=== PATIENT | male | born 2000 | race Caucasian/White ===

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

== ENCOUNTER 2024-05-31 13:48 | Emergency (ER) | payer SELFPAY ==
[2024-05-31 13:50] VITALS: BP 139/76; PULSE 75; RESP 18; TEMP 36.1; O2SAT 100; BMI 21.0
--- NOTE | 2024-05-31 14:26 | EX.ED.VIS.PS ---
HPI HPI - Psych History of Present Illness Chief Complaint: Suicidal Detail of Chief Complaint: Depression with suicidal ideation. Informant: patient and mental health staff Onset/Context/Timing Onset: Weeks Context: Gradual Onset Timing: Continuous Current Severity: Moderate Maximum Severity: Moderate Relieved by: Plan to shoot himself. Patient has access to a gun. Associated Symptoms Associated Symptoms - Psych: Positive for Depressed and Suicidal Thoughts Specific plan (suicidal thought): Plan to shoot himself. Patient has access to a gun. Narrative Narrative: 23-year-old biologic male who identifies as a female. Patient has a history of anxiety and depression. The last 2 weeks has been more more depressed. Patient is currently starting the process of transitioning from a biological male to female. Recently moved from the [facility] to [place]. Has a plan to shoot himself. Had a similar episode in fourth grade but no one was aware of that and was not admitted to a psychiatric facility at that time. Has had prior psychiatric admissions within the last 2 years. Denies any recent illness. Denies drug use. Prior similar symptoms: Yes Recent Illness/Hospitalization: No PFSH [facility] Home Medications ?Medication ?Instructions ?Recorded ?Last Taken ?Type buspirone 15 mg tablet 15 mg PO TID 05/31/24 Unknown History cariprazine 3 mg capsule (Vraylar) 3 mg PO DAILY 05/31/24 Unknown History duloxetine 20 mg capsule,delayed 80 mg PO DAILY 05/31/24 Unknown History release (Cymbalta) estradiol 2 mg tablet 2 mg PO TID 05/31/24 Unknown History prazosin 1 mg capsule 3 mg PO DAILY 05/31/24 Unknown History progesterone 50 mg/mL 100 mg IM DAILY 05/31/24 Unknown History intramuscular oil spironolactone 50 mg tablet 50 mg PO DAILY 05/31/24 Unknown History (Aldactone) Allergy/AdvReac Type Severity Reaction Status Date / Time Penicillins (PCN) Allergy Unknown Other Verified 05/31/24 13:53 Social History Smoking Status: Current every day smoker tobacco type: e-cigarettes ROS ROS ED ROS Narrative Denies recent illness. Constitutional Constitutional ED: Denies fever(s) Eyes Eyes: Denies blurry vision ENT ENT ED: Denies ear pain Cardiovascular Cardiovascular: Denies chest pain Respiratory/Chest Respiratory/Chest: Denies cough Genitourinary Genitourinary ED: Denies dysuria Musculoskeletal Musculoskeletal: Denies arthralgias Integumentary Denies abscess Neurologic Neurologic: Denies headache(s) Psychiatric Psychiatric: Reports anxiety, depression, suicidal ideation and suicidal thoughts Endocrine Endocrinology: Denies polydipsia Hematologic/Lymphatic Hematologic/Lymphatic: Denies easy bleeding Allergic/Immunologic Allergic/Immunologic ED: Denies mouth swelling EXAM Physical Exam Narrative Exam Narrative: Well-appearing 23-year-old biologic male. Vital signs stable afebrile. Pulse ox on percent on room air no hypoxia. No distress. Sitting upright in bed. Makes eye contact. Currently is cooperative. Currently not violent or verbally abusive. Myself and the counseling center personnel in the room. H EENT exam unremarkable. Neck nontender no JVD. No lymphadenopathy. No signs of trauma. Lungs clear to auscultation. Heart regular rhythm rate about 75 no murmur. Chest wall ribs nontender. Abdomen soft nontender. Moving all 4 extremities. Calves are nontender without edema. No lacerations to the upper extremities. Back nontender. Patient's awake and alert. Acting appropriately. Answering questions following commands. No smell of alcohol. No signs of a toxidrome. Const Vital Signs: 05/31/24 13:50 05/31/24 14:49 05/31/24 21:46 Temperature 97 F L 97.8 F Temperature Source Oral Pulse Rate 75 84 74 Respiratory Rate 18 16 16 Blood Pressure 139/76 H 126/98 H 114/75 Blood Pressure Mean 97 107 88 Pulse Ox 100 99 98 Oxygen Delivery Method Room Air Positive well nourished and well developed; Negative for obese, cachectic, contractures or unkempt General Appearance ED: well developed and NAD; Negative for unkempt, cachectic, contractures or pallor Nutritional Appearance: Negative for cachectic or obese HEENT Reports moist mucous membranes normocephalic and atraumatic; Negative for trauma or tenderness Eyes PERRL and EOMs intact bilaterally General Eye ED: Negative for pale conjunctiva Neck no lymphadenopathy, supple and no JVD General: Negative for tenderness Resp normal respiratory effort and clear to auscultation bilaterally Effort and Inspection: Negative for retractions Auscultation: rales; Negative for rhonchi, wheezes, diminished lung sounds or other Cardio S1 normal heart sound, S2 normal heart sound and no murmurs Rate: regular rate Rhythm: regular rhythm GI non-tender, non-distended and no masses Inspection: Negative for abdominal distention Auscultation: normoactive bowel sounds Palpation: soft; Negative for tender or guarding Back/Spine no CVA tenderness General Back: Negative for CVA tenderness Cervical Spine: Negative for cervical spine tenderness Thoracic Spine / Upper Back: Negative for thoracic spinal tenderness Lumbar Spine / Lower Back: Negative for lumbar spinal tenderness Extremity normal to inspection General Extremety ED: Negative for edema or tenderness General Extremity: Negative for edema Neuro oriented x3 and CN's II-XII intact bilaterally Sensorium / Orientation: alert, oriented to person, oriented to place and oriented to time; Negative for confused, lethargic or stuporous Motor Exam: strength 5/5 throughout Psych cooperative, speech normal, activity/motor behavior normal and denies hallucinations; Negative for denies suicidal ideation Appearance: grossly normal; Negative for unkempt Attitude: calm and engaged Activity / Motor Behavior: appropriate eye contact Speech: normal speech Mood & Affect: depressed Thought Process: normal thought process Thought Content: suicidality Attention / Concentration: attention grossly intact Memory / Cognition: memory grossly intact Insight: insight good Judgement: judgement good Skin General Skin Exam: Negative for jaundice or pallor Lesions: no lesions Rashes: no rashes Trauma: Negative for abrasion Wounds: Negative for amputation MDM MDM MDM Narrative Medical decision making narrative: 23-year-old patient with anxiety depression with suicidal ideation and plan. ED mental health evaluation. Crisis is evaluating patient. Patient will be pink slipped to a psychiatric facility. Repeat exam patient is resting comfortably at 4:21 PM. Awaiting crisis placement for depression and suicidal ideation. History & Record Review Discussion w/independent historian: Patient Lab Data Attestation: I reviewed the patient's lab results. Lab results narrative: CBC normal. White count of 6. H&H 14 and 42. Platelets 224. Electrolytes show gap 5. Normal BUN and creatinine. Glucose 91. Tox screen only positive for cannabis. Alcohol negative. Labs: Laboratory Results - last 24 hr 05/31/24 15:00 WBC 6.7 RBC 4.72 Hgb 14.2 Hct 42.8 MCV 90.7 MCH 30.1 MCHC 33.2 RDW Std Deviation 38.6 RDW Coeff of Fabi 11.5 L Plt Count 224 MPV 11.0 Immature Gran % (Auto) 0.100 Neut % (Auto) 71.8 H Lymph % (Auto) 22.1 [place] % (Auto) 5.1 Eos % (Auto) 0.3 Baso % (Auto) 0.6 Absolute Neuts (auto) 4.8 Absolute Lymphs (auto) 1.48 Nucleated RBC % 0 Sodium 140 Potassium 3.7 Chloride 108 H Carbon Dioxide 27.0 Anion Gap 5 BUN 7 Creatinine 0.85 Estim Creat Clear Calc 134.94 Est GFR (MDRD) Af Amer 145 Est GFR (MDRD) Non-Af 120 BUN/Creatinine Ratio 8.2 L Glucose 91 Calcium 9.0 Urine Opiates Screen NEGATIVE Urine Methadone Screen NEGATIVE Ur Barbiturates Screen NEGATIVE Ur Phencyclidine Scrn NEGATIVE Ur Amphetamines Screen NEGATIVE MDMA (Ecstasy) Screen NEGATIVE U Benzodiazepines Scrn NEGATIVE Urine Cocaine Screen NEGATIVE U Cannabinoids Screen POSITIVE H Ur Drug Screen Comment Ethyl Alcohol < 3.0 Discharge Plan Triage Chief Complaint: Suicidal ED Provider: Sandor Leiva Dx/Rx/DC Orders Clinical Impression: Depression, Depression with suicidal ideation Prescriptions: No Action duloxetine [Cymbalta] 20 mg capsule,delayed release(DR/EC) 80 mg PO DAILY buspirone 15 mg tablet 15 mg PO TID estradiol 2 mg tablet 2 mg PO TID spironolactone [Aldactone] 50 mg tablet 50 mg PO DAILY Vraylar 3 mg capsule 3 mg PO DAILY prazosin 1 mg capsule 3 mg PO DAILY progesterone 50 mg/mL oil 100 mg IM DAILY Primary Care Provider: Care Physician,No Primary Referrals: Care Physician,No Primary [Primary Care Provider] - Print Language: French Disposition Disposition: Psychiatric Hospital or Unit
[2024-05-31 14:49] VITALS: BP 126/98; PULSE 84; RESP 16; O2SAT 99
[2024-05-31 15:35] LABS: Absolute Lymphocyte Count 1.48 X10^3/uL (0.83-4.51); Absolute Neutrophil Count 4.8 X10^3/uL (2.0-7.7); Basophil# 0.04 X10^3/uL; Basophil% 0.6 % (0-1); Eosinophil# 0.02 X10^3/uL; Eosinophils% 0.3 % (0-5); Hematocrit 42.8 % (40-54); Hemoglobin 14.2 g/dL (13.0-16.5); Lymphocyte # 1.48 X10^3/ul (0.83-4.51); Lymphocyte % 22.1 % (19-41); Mean Corp Hgb Conc 33.2 g/dL (32-36); Mean Corpuscular Hgb 30.1 pg (27.0-32.0); Mean Corpuscular Volume 90.7 fL (80-94); Monocyte# 0.34 X10^3/uL; Monocyte% 5.1 % (0-10); NRBC Flagged by Analyzer 0 % (0-5); Neutrophil % 71.8 % (47-70); Platelet Count 224 K/mm3 (150-450); RBC Distribution Width CV 11.5 % (11.6-14.6); RBC Distribution Width SD 38.6 fl (35.1-43.9); Red Blood Count 4.72 M/mm3 (4.6-6.2); White Blood Count 6.7 K/mm3 (4.4-11.0)
[2024-05-31 15:49] LABS: Anion Gap 5 (5-15); BUN 7 mg/dL (7-18); BUN/Creat Ratio 8.2 RATIO (10-20); Chloride 108 mmol/L (98-107); Creatinine, Serum 0.85 mg/dL (0.70-1.30); EST Glomerular Filtration Rate 120 mL/min (>60); Est Glom Filt Rate - Afr Amer 145 mL/min (>60); Estimated Creatinine Clearance 134.94 ml/min; Glucose 91 mg/dL (74-106); Potassium 3.7 mmol/L (3.5-5.1); Sodium Level 140 mmol/L (136-145)
[2024-05-31 15:50] LABS: Alcohol, Blood (Medical)-Serum < 3.0 mg/dL
[2024-05-31 15:58] LABS: Amphetamine Urine VISTA NEGATIVE (<1000 ng/mL); Barbiturate Urine VISTA NEGATIVE (< 200 ng/mL); Benzodiazepine Urine VISTA NEGATIVE (< 200 ng/mL); Cocaine Urine VISTA NEGATIVE (< 300 ng/mL); Ecstacy Urine VISTA NEGATIVE (< 500 ng/mL); Methadone Urine VISTA NEGATIVE (< 300 ng/mL); PCP Urine VISTA NEGATIVE (< 25 ng/mL); THC Urine VISTA POSITIVE (< 50 ng/mL); Vista UDS pH Range 7
--- NOTE | 2024-05-31 17:59 | NURSING ---
FAXED CHART TO [facility]IS[facility]
--- NOTE | 2024-05-31 19:02 | ED.RN ---
Nurse Cardoza called report to [facility] at this time and advised this nurse.
[2024-05-31] MEDS: Prazosin HCl 1 MG Capsule 3 MG PO (20:51)
[2024-05-31] MEDS: DULoxetine Hcl 20 MG Capsule 80 MG PO (20:51)
[2024-05-31] MEDS: busPIRone 15 MG TABLET PO (20:51)
[2024-05-31 21:46] VITALS: BP 114/75; PULSE 74; RESP 16; TEMP 36.6; O2SAT 98
[2024-05-31 23:24] VITALS: BP 104/66; PULSE 65; RESP 16; TEMP 36.6; O2SAT 98
== END 2024-05-31 23:57 ==
PROVIDERS: Emergency Provider Emergency Medicine; Visit Provider Emergency Medicine
DX: R45.851 Suicidal ideations (principal); F32.A Depression, unspecified; F64.0 Transsexualism; F41.9 Anxiety disorder, unspecified; F17.290 Nicotine dependence, other tobacco product, uncomplicated; Z88.0 Allergy status to penicillin; Z79.899 Other long term (current) drug therapy; Z79.890 Hormone replacement therapy
CPT/HCPCS: 80048; 80307; 82077; 85025; 99285

== ENCOUNTER 2024-06-13 16:21 | Emergency (ER) | payer SELFPAY ==
[2024-06-13 16:22] VITALS: BP 120/78; PULSE 78; RESP 18; TEMP 36.8; O2SAT 99; BMI 20.7
--- NOTE | 2024-06-13 16:24 | RAD_ITS ---
INDICATION: TRAUMA EXAMINATION/TECHNIQUE: X-RAY - RIGHT XR Wrist Min 3 Views 3 VIEWS COMPARISON: FINDINGS: SOFT TISSUES: No soft tissue swelling or gas. No radiopaque foreign body. BONES/JOINTS: No acute fracture or subluxation.. Normal alignment. Preservation of the joint space.. No sclerotic or destructive changes observed. RAD/Wrist min 3 Views IMPRESSION: Negative. Electronically Signed: Mumtaz Jordan DO at 18:06 EDT ,
--- NOTE | 2024-06-13 17:10 | RAD_ITS ---
INDICATION: TRAUMA EXAMINATION/TECHNIQUE: X-RAY - RIGHT XR Hand Min 3 Views 3 VIEWS COMPARISON: FINDINGS: SOFT TISSUES: No soft tissue swelling or gas. No radiopaque foreign body. BONES/JOINTS: No acute fracture or subluxation.. Normal alignment. Preservation of the joint space.. No sclerotic or destructive changes observed. RAD/Hand Min 3 Views IMPRESSION: Negative. Electronically Signed: Mumtaz Jordan DO at 18:16 EDT ,
--- OUTSIDE RECORDS SUMMARY | 2024-06-13 19:09 | XMS RPT_ITS | CCD ---
Author Organization [facility] Care Team Providers Care Bioinformatics Technician Name Role Phone None, Physician Primary Care Provider Manny Lemus MD Emergency Provider [phone] Manny Lemus Attending Unavailable None Primary Care Unavailable Allergies Allergy
== END 2024-06-13 18:23 | disposition left against medical advice (07) ==
LOC: ED 18:50
DX: S69.91XA Unspecified injury of right wrist, hand and finger(s), initial encounter (principal); X58.XXXA Exposure to other specified factors, initial encounter; Z53.21 Procedure and treatment not carried out due to patient leaving prior to being seen by health care provider
CPT/HCPCS: 73110; 73130

== ENCOUNTER 2024-06-22 13:44 | Emergency (ER) | payer MEDICAID, SELFPAY ==
[2024-06-22 13:46] VITALS: BP 139/82; PULSE 89; RESP 16; TEMP 35.7; O2SAT 100; BMI 20.9
[2024-06-22 14:32] LABS: Absolute Lymphocyte Count 3.33 X10^3/uL (0.83-4.51); Absolute Neutrophil Count 5.5 X10^3/uL (2.0-7.7); Basophil# 0.04 X10^3/uL; Basophil% 0.4 % (0-1); Eosinophil# 0.07 X10^3/uL; Eosinophils% 0.7 % (0-5); Hematocrit 44.1 % (40-54); Hemoglobin 15.6 g/dL (13.0-16.5); Lymphocyte # 3.33 X10^3/ul (0.83-4.51); Lymphocyte % 34.3 % (19-41); Mean Corp Hgb Conc 35.4 g/dL (32-36); Mean Corpuscular Hgb 30.5 pg (27.0-32.0); Mean Corpuscular Volume 86.1 fL (80-94); Monocyte# 0.73 X10^3/uL; Monocyte% 7.5 % (0-10); NRBC Flagged by Analyzer 0 % (0-5); Neutrophil # 5.49 X10^3/uL (2.7-7.7); Neutrophil % 56.7 % (47-70); Platelet Count 300 K/mm3 (150-450); RBC Distribution Width CV 11.3 % (11.6-14.6); RBC Distribution Width SD 35.5 fl (35.1-43.9); Red Blood Count 5.12 M/mm3 (4.6-6.2); White Blood Count 9.7 K/mm3 (4.4-11.0)
[2024-06-22 14:42] LABS: Alcohol, Blood (Medical)-Serum < 3.0 mg/dL
[2024-06-22 14:43] LABS: Anion Gap 12 (5-15); BUN 12 mg/dL (7-18); Calcium,Total 9.7 mg/dL (8.5-10.1); Chloride 103 mmol/L (98-107); Creatinine, Serum 0.92 mg/dL (0.70-1.30); EST Glomerular Filtration Rate 109 mL/min (>60); Est Glom Filt Rate - Afr Amer 132 mL/min (>60); Estimated Creatinine Clearance 122.56 ml/min; Glucose 108 mg/dL (74-106); Potassium 3.4 mmol/L (3.5-5.1); Sodium Level 136 mmol/L (136-145)
[2024-06-22] MEDS: Lidocaine 1% (20 ml mdv) 20 ML Vial INFILT (15:15)
--- NOTE | 2024-06-22 15:33 | NURSING ---
FAXED CHART TO [facility]IS[facility]
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
[2024-06-22 16:34] LABS: Amphetamine Urine VISTA NEGATIVE (<1000 ng/mL); Barbiturate Urine VISTA NEGATIVE (< 200 ng/mL); Benzodiazepine Urine VISTA NEGATIVE (< 200 ng/mL); Cocaine Urine VISTA NEGATIVE (< 300 ng/mL); Ecstacy Urine VISTA NEGATIVE (< 500 ng/mL); Methadone Urine VISTA NEGATIVE (< 300 ng/mL); PCP Urine VISTA NEGATIVE (< 25 ng/mL); THC Urine VISTA POSITIVE (< 50 ng/mL); Vista UDS pH Range 7
--- NOTE | 2024-06-22 22:43 | ED.RN ---
ACCEPTED [facility] [id number] [phone]
[2024-06-22 23:01] VITALS: BP 115/63; PULSE 82; RESP 16; O2SAT 98
--- NOTE | 2024-06-23 06:46 | ED.RN ---
Spoke with private secretary at [facility] and she told this RN no one is available to take report until after 0730 am. [facility] aware.
[2024-06-23 07:00] VITALS: BP 125/69; PULSE 100; RESP 16; O2SAT 93
--- NOTE | 2024-06-23 07:39 | ED.RN ---
Pt doing ok. Family at bedside. Breakfast ordered.
--- NOTE | 2024-06-23 08:22 | ED.RN ---
Attempted to call report to [facility]. Per them, there is no one listed in their drop box and they are not able to take report until it is there. They will contact their charge nurse.
--- NOTE | 2024-06-23 08:28 | ED.RN ---
Sarah called back and the people that do the intake are not there yet, so they will not be able to take the patient until someone is there. We are not able to send the patient until someone arrives.
[2024-06-23 10:37] VITALS: BP 128/78; PULSE 99; RESP 12; O2SAT 96
[2024-06-23 11:32] VITALS: BP 128/78; PULSE 99; RESP 16; TEMP 36.6; O2SAT 99
== END 2024-06-23 11:48 ==
PROVIDERS: Emergency Provider Emergency Medicine; Visit Provider Emergency Medicine
DX: S50.811A Abrasion of right forearm, initial encounter (principal); X78.1XXA Intentional self-harm by knife, initial encounter; R45.851 Suicidal ideations; F41.9 Anxiety disorder, unspecified; F32.A Depression, unspecified; F64.0 Transsexualism; F17.290 Nicotine dependence, other tobacco product, uncomplicated; Z88.0 Allergy status to penicillin; Z79.890 Hormone replacement therapy; Z79.899 Other long term (current) drug therapy
CPT/HCPCS: 12002; 80048; 80307; 82077; 85025; 99285